=== PATIENT | female | born 1975 | race Caucasian/White ===

== ENCOUNTER 2016-06-10 23:01 | Emergency (ER) | payer MEDICAID ==
[2016-06-11 00:10] LABS: BASOPHIL % 0.5 % (0-2); PLATELET COUNT 213 x10^3mcL (130-400); RED CELL DISTRIBUTION WIDTH 14.3 % (11.5-14.5)
[2016-06-11 00:46] LABS: CALCIUM 8.4 mg/dL (8.5-10.1); CARBON DIOXIDE 26.7 mmol/L (21-32); CHLORIDE SERUM 104 mmol/L (98-107); CREATININE SERUM 0.6 mg/dL (0.6-1.0); GFR1 > 60 mL/min; GLUCOSE SERUM 96 mg/dL (74-106); POTASSIUM SERUM 3.7 mmol/L (3.5-5.1); SODIUM SERUM 137 mmol/L (136-145)
[2016-06-11 00:49] LABS: ALBUMIN 3.8 g/dL (3.4-5.0); ALKALINE PHOSPHATASE 78 U/L (46-116); ALT/SGPT 12 U/L (14-59); AMYLASE 38 U/L (25-115); AST/SGOT 18 U/L (15-37); BILIRUBIN TOTAL 0.24 mg/dL (0.20-1.00); LIPASE 101 IU/L (73-393); TOTAL PROTEIN, SERUM 7.3 g/dL (6.4-8.2)
[2016-06-11 01:37] VITALS: BP 106/64
[2016-06-11 01:45] LABS: microscopic required? YES; urine erythrocyte 1+ (NEGATIVE)
== END 2016-06-11 01:37 | disposition home or self-care (01) ==
LOC: ED 23:01
PROVIDERS: Emergency Medicine
DX: R10.11 Right upper quadrant pain (principal)
CPT/HCPCS: 83880; J2270; J2550; Q0092

== ENCOUNTER 2017-04-16 01:15 | Emergency (ER) | payer MEDICAID ==
[~2017-04-16] VITALS: Ht 157.5 cm; Wt 74.6 kg
[2017-04-16 01:22] VITALS: Ht 157.5 cm; Wt 74.6 kg
[2017-04-16 02:59] LABS: CALCIUM 8.1 mg/dL (8.5-10.1); CARBON DIOXIDE 28.2 mmol/L (21-32); CHLORIDE SERUM 104 mmol/L (98-107); CREATININE SERUM 0.6 mg/dL (0.6-1.0); GFR1 > 60 mL/min; GLUCOSE SERUM 107 mg/dL (74-106); POTASSIUM SERUM 3.7 mmol/L (3.5-5.1); SODIUM SERUM 140 mmol/L (136-145)
[2017-04-16 03:02] LABS: PLATELET COUNT 200 x10^3mcL (130-400)
[2017-04-16 03:06] LABS: ALBUMIN 3.5 g/dL (3.4-5.0); ALKALINE PHOSPHATASE 70 U/L (46-116); ALT/SGPT 17 U/L (14-59); AMYLASE 40 U/L (25-115); AST/SGOT 16 U/L (15-37); BASOPHIL % 0 % (0-2); BILIRUBIN TOTAL 0.18 mg/dL (0.20-1.00); LIPASE 96 IU/L (73-393); RED CELL DISTRIBUTION WIDTH 14.6 % (11.5-14.5); TOTAL PROTEIN, SERUM 7.1 g/dL (6.4-8.2)
[2017-04-16 04:22] VITALS: BP 112/75
== END 2017-04-16 04:22 | disposition home or self-care (01) ==
LOC: ED 01:15
PROVIDERS: Emergency Medicine
DX: T62.91XA Toxic effect of unspecified noxious substance eaten as food, accidental (unintentional), initial encounter (principal); Y92.89 Other specified places as the place of occurrence of the external cause; A08.4 Viral intestinal infection, unspecified
CPT/HCPCS: 83880; J1885; J2405; J2765; J7030

== ENCOUNTER 2017-09-05 01:39 | Emergency (ER) | payer MEDICAID ==
[~2017-09-05] VITALS: Ht 162.6 cm; Wt 73.5 kg
[2017-09-05 02:11] VITALS: Ht 162.6 cm; Wt 73.5 kg
[2017-09-05 04:25] VITALS: BP 94/78
== END 2017-09-05 04:25 | disposition home or self-care (01) ==
LOC: ED 01:39
DX: N39.0 Urinary tract infection, site not specified (principal)

== ENCOUNTER 2018-01-04 11:24 | Emergency (ER) | payer MEDICAID ==
[~2018-01-04] VITALS: Ht 162.6 cm; Wt 71.8 kg
[2018-01-04 11:33] VITALS: Ht 162.6 cm; Wt 71.8 kg
[2018-01-04 12:08] VITALS: BP 114/71
== END 2018-01-04 12:08 | disposition home or self-care (01) ==
LOC: ED 11:24
DX: N39.0 Urinary tract infection, site not specified (principal); Z98.51 Tubal ligation status

== ENCOUNTER 2018-07-24 22:53 | Emergency (ER) | payer MEDICAID ==
[~2018-07-24] VITALS: Ht 165.1 cm; Wt 73.5 kg
[2018-07-24 23:39] VITALS: Ht 165.1 cm; Wt 73.5 kg
[2018-07-25 00:31] LABS: BASOPHIL % 0.2 % (0-2); CALCIUM 8.7 mg/dL (8.5-10.1); CARBON DIOXIDE 29.9 mmol/L (21-32); CHLORIDE SERUM 103 mmol/L (98-107); CREATININE SERUM 0.8 mg/dL (0.6-1.0); GFR1 > 60 mL/min; GLUCOSE SERUM 118 mg/dL (74-106); PLATELET COUNT 371 x10^3mcL (130-400); POTASSIUM SERUM 3.5 mmol/L (3.5-5.1); RED CELL DISTRIBUTION WIDTH 13.1 % (11.5-14.5); SODIUM SERUM 138 mmol/L (136-145)
[2018-07-25 00:35] LABS: ALBUMIN 3.8 g/dL (3.4-5.0); ALKALINE PHOSPHATASE 88 U/L (46-116); ALT/SGPT 35 U/L (14-59); AST/SGOT 15 U/L (15-37); BILIRUBIN TOTAL 0.2 mg/dL (0.20-1.00); LIPASE 91 IU/L (73-393); TOTAL PROTEIN, SERUM 7.6 g/dL (6.4-8.2)
[2018-07-25 05:01] VITALS: BP 105/67
== END 2018-07-25 05:01 | disposition home or self-care (01) ==
LOC: ED 22:53
PROVIDERS: Emergency Medicine
DX: R10.13 Epigastric pain (principal); R10.11 Right upper quadrant pain; Z98.890 Other specified postprocedural states; Z98.51 Tubal ligation status
CPT/HCPCS: 36415; Q0092

== ENCOUNTER 2018-09-11 02:38 | Emergency (ER) | payer MEDICAID ==
[~2018-09-11] VITALS: Ht 165.1 cm; Wt 74.9 kg
[2018-09-11 02:46] VITALS: Ht 165.1 cm; Wt 74.9 kg
[2018-09-11 04:02] LABS: CALCIUM 8.3 mg/dL (8.5-10.1); CARBON DIOXIDE 22.4 mmol/L (21-32); CHLORIDE SERUM 106 mmol/L (98-107); CREATININE SERUM 0.7 mg/dL (0.6-1.0); GFR1 > 60 mL/min; GLUCOSE SERUM 106 mg/dL (74-106); POTASSIUM SERUM 3.9 mmol/L (3.5-5.1); SODIUM SERUM 137 mmol/L (136-145)
[2018-09-11 04:08] LABS: ALBUMIN 3.4 g/dL (3.4-5.0); ALKALINE PHOSPHATASE 80 U/L (46-116); ALT/SGPT 18 U/L (14-59); AST/SGOT 12 U/L (15-37); BILIRUBIN TOTAL 0.22 mg/dL (0.20-1.00); LIPASE 92 IU/L (73-393); TOTAL PROTEIN, SERUM 7.1 g/dL (6.4-8.2)
[2018-09-11 04:09] LABS: BASOPHIL % 0.3 % (0-2); PLATELET COUNT 233 x10^3mcL (130-400); RED CELL DISTRIBUTION WIDTH 14.1 % (11.5-14.5)
[2018-09-11 05:24] VITALS: BP 109/65
== END 2018-09-11 05:24 | disposition home or self-care (01) ==
LOC: ED 02:38
PROVIDERS: Emergency Medicine
DX: K29.70 Gastritis, unspecified, without bleeding (principal); Z98.51 Tubal ligation status
CPT/HCPCS: J2270; J2405; J7030

== ENCOUNTER 2018-10-19 21:21 | Emergency (ER) | payer MEDICAID ==
[~2018-10-19] VITALS: Ht 162.6 cm; Wt 74.8 kg
[2018-10-19 21:30] VITALS: BP 105/67; Ht 162.6 cm; Wt 74.8 kg
== END 2018-10-19 22:43 | disposition home or self-care (01) ==
LOC: ED 21:21
DX: J02.9 Acute pharyngitis, unspecified (principal); H92.02 Otalgia, left ear; Z98.51 Tubal ligation status

== ENCOUNTER 2018-10-28 | Emergency (ER) | payer MEDICAID ==
[~2018-10-28] VITALS: Ht 160 cm; Wt 73.9 kg
[2018-10-28 00:06] VITALS: Ht 160 cm; Wt 73.9 kg
[2018-10-28 01:20] LABS: microscopic required? YES; urine erythrocyte 2+ (NEGATIVE)
[2018-10-28 01:21] LABS: BASOPHIL % 0.3 % (0-2); PLATELET COUNT 233 x10^3mcL (130-400)
[2018-10-28 01:22] LABS: RED CELL DISTRIBUTION WIDTH 15.2 % (11.5-14.5)
[2018-10-28 01:37] LABS: CALCIUM 7.9 mg/dL (8.5-10.1); CARBON DIOXIDE 24.5 mmol/L (21-32); CHLORIDE SERUM 106 mmol/L (98-107); CREATININE SERUM 0.9 mg/dL (0.6-1.0); GFR1 > 60 mL/min; GLUCOSE SERUM 101 mg/dL (74-106); POTASSIUM SERUM 4.5 mmol/L (3.5-5.1); SODIUM SERUM 141 mmol/L (136-145)
[2018-10-28 01:45] LABS: ALBUMIN 3.7 g/dL (3.4-5.0); ALKALINE PHOSPHATASE 70 U/L (46-116); ALT/SGPT 21 U/L (14-59); AMYLASE 41 U/L (25-115); AST/SGOT 16 U/L (15-37); BILIRUBIN TOTAL 0.3 mg/dL (0.20-1.00); LIPASE 90 IU/L (73-393); TOTAL PROTEIN, SERUM 7.7 g/dL (6.4-8.2)
[2018-10-28 03:38] VITALS: BP 97/55
== END 2018-10-28 03:38 | disposition home or self-care (01) ==
LOC: ED
PROVIDERS: Emergency Medicine
DX: N12 Tubulo-interstitial nephritis, not specified as acute or chronic (principal)
CPT/HCPCS: C9113; J0696; J1885; J2405; J7030; J7060

== ENCOUNTER 2018-12-27 20:31 | Emergency (ER) | payer MEDICAID ==
[~2018-12-27] VITALS: Ht 165.1 cm; Wt 73.9 kg
[2018-12-28 00:30] VITALS: BP 97/66
== END 2018-12-28 00:30 | disposition home or self-care (01) ==
LOC: ED 20:31
DX: M25.512 Pain in left shoulder (principal); Z98.51 Tubal ligation status
CPT/HCPCS: J1885